=== PATIENT | male | born 1955 | race Caucasian/White ===

== ENCOUNTER → 2017-03-22 | Outpatient (CLI) | payer BC ==
--- NOTE | 2017-03-25 08:11 | XR ---
EXAMINATION TYPE: XR cervical spine comp DATE OF EXAM: 03/22/2017 4:55 PM TECHNIQUE: Frontal, lateral, oblique, and open mouth view of the cervical spine are obtained. HISTORY: M542 cervicalgia increased left-sided neck pain on background of chronic pain per patient COMPARISON: None FINDINGS: The cervical spine is visualized in its entirety from C1 thru the top of T1 level, it is s traightened in alignment without evidence of acute fracture or dislocation. There is grade 1 retroli sthesis of C5 on C6. The pre-vertebral soft tissue appears within normal limits. The C1-C2 articulat ion is within normal limits on the open mouth view. Vertebral body heights are maintained. There is m ild to moderate disc space narrowing with mild spurring at C5-C6 level. Oblique images are felt withi n normal limits. There is likely some right-sided neural foraminal narrowing due to marginal spurring and uncovertebral facet arthropathy. Vascular calcification bilateral carotid bulbs is present in th e overlying soft tissue. IMPRESSION: 1. Straightening of cervical spine with spondylolisthesis and most prominent degenerative change C5-C 6 level noted. 2. Vascular calcification carotid bulb level bilaterally at least moderate in appearance, recommend c arotid ultrasound correlation to assess for stenosis.
== END | disposition home or self-care (01) ==
LOC: RADXRYALE 16:42
PROVIDERS: ATTEND Family Medicine
DX: M43.12 Spondylolisthesis, cervical region (principal); M47.812 Spondylosis without myelopathy or radiculopathy, cervical region
CPT/HCPCS: 72050

== ENCOUNTER → 2019-04-10 | Outpatient (CLI) | payer BC ==
--- NOTE | 2019-04-13 11:52 | ECHOS ---
STRESS ECHOCARDIOGRAM DATE OF SERVICE: 04/10/2019 INDICATIONS: Chest pain. MEDICATIONS: Atorvastatin, Norvasc. BASELINE HEART RATE: 103 BASELINE BLOOD PRESSURE: 177/58 MAXIMUM HEART RATE: 143 MAXIMUM BLOOD PRESSURE: 207/67 85% MPHR: 134 100% MPHR: 158 METS: 7.1 MAXIMUM STAGE REACHED: II TOTAL EXERCISE TIME: 6 minutes CLINICAL INFORMATION: STRESS DATA: Pretesting physical examination showed a heart rate of 103, pressure is 177/58 mmHg. Baseline EKG showed sinus mechanism. The patient exercised on treadmill according to Ron protocol for a total of 6 minutes and achieved 7.1 METs. Max heart rate was 143 which is about 90% of maximum predicted heart rate. Maximum blood pressure was 207/67 mmHg. Clinically the patient did not have any symptoms of chest pain or discomfort. The EKG showed about [address]-segment depression. The changes resolved on recovery. ECHOCARDIOGRAM IMAGES: On echocardiogram images from parasternal long axis view, parasternal short axis view, apical 4 chamber and apical 2 chamber views were obtained at the baseline images, at the peak of the heart rate, as well as on recovery. The echocardiogram images showed good augmentation in the left ventricular systolic function without any evidence of wall motion abnormalities concerning for ischemia. CONCLUSION: 1. Good exercise tolerance. 2. ST changes in response to exercise. 3. Normal echocardiogram in response to exercise without any evidence of wall motion abnormalities concerning for ischemia. MMODL / IJN: [id number] /
== END | disposition home or self-care (01) ==
LOC: RADNMMAIN 09:46
PROVIDERS: ATTEND Family Medicine
DX: R00.0 Tachycardia, unspecified (principal); I10 Essential (primary) hypertension
CPT/HCPCS: 93351

== ENCOUNTER → 2025-03-16 | Outpatient (CLI) | payer MEDICARE ==
--- NOTE | 2025-03-16 13:16 | XR ---
EXAMINATION TYPE: XR chest 2V DATE OF EXAM: 03/16/2025 11:40 AM COMPARISON: 04/02/2022 CLINICAL INDICATION: Male, 69 years old with history of J180,R062 BRONCHOPNEUMONIA, WHEEZING, , TECHNIQUE: Frontal and lateral views FINDINGS: ACDF hardware. Heart normal size. Aorta and pulmonary vasculature within normal limits. There is some right paratracheal soft tissue prominence similar to slightly increased from 2021. New band of opaci ty at the left midlung. Otherwise, no consolidation or pleural effusion. Moderate degenerative change mid thoracic spine. IMPRESSION: Consider further CT evaluation to assess right paratracheal soft tissue density and a band of opacity at the left midlung to exclude any endobronchial lesion causing postobstructive atelectasis. [facility], , 03/16/2025 1:13 PM
== END | disposition home or self-care (01) ==
LOC: RADXRYALE 11:30
PROVIDERS: ATTEND Family Medicine
DX: J18.0 Bronchopneumonia, unspecified organism (principal); J98.4 Other disorders of lung
CPT/HCPCS: 71046

== ENCOUNTER → 2025-03-29 | Outpatient (CLI) | payer MEDICARE ==
[2025-03-29 13:26] LABS: African American GFR (CKD) >90 (>60 ml/min/1.73 sqM); Blood Urea Nitrogen 28 mg/dL (9-20); Non-African American GFR(CKD) 81 (>60 ml/min/1.73 sqM)
--- NOTE | 2025-03-29 14:42 | CT ---
EXAMINATION TYPE: CT chest wo/w con CT DLP: 849 mGycm, Automated exposure control for dose reduction was used. DATE OF EXAM: 03/29/2025 2:03 PM COMPARISON: Chest radiograph 03/16/2025 CLINICAL INDICATION:Male, 69 years old with history of R91.8 OTHER NONSPECIFIC ABNORMAL FINDING OF ARNOLD NG F; PHH, ABNORMAL FINDING-LUNG NODULE TECHNIQUE: Multiple axial images were obtained through the chest before and after the uneventful admi nistration of 100 cc of Isovue-300 intravenously . Coronal and sagittal reformats reviewed. FINDINGS: LUNGS/ PLEURA: No pleural effusion, pneumothorax, or focal consolidation. Mild linear scarring and/or atelectasis within the medial aspect of the bilateral upper lobes. No suspicious pulmonary nodule o r mass. Elevation of the right hemidiaphragm. AIRWAY: Patent and unremarkable.. HEART: Size within normal limits. . Trace anterior pericardial effusion. Mild coronary artery calcifi cations present. MEDIASTINUM: No evidence of adenopathy. No abnormality corresponding to right paratracheal soft tissu e density. VASCULATURE: No aortic aneurysm. Atherosclerotic calcification of the aorta and its branches. Bovine aortic arch. MUSCULOSKELETAL: No acute osseous abnormalities. Partial visualization anterior cervical fusion hardw are. Mild multilevel degenerative disc disease with anterior osteophytosis of the thoracolumbar spine . SOFT TISSUES/LYMPH NODES: Unremarkable. LOWER NECK: Heterogenous hypodense 2.3 cm isthmus thyroid nodule. UPPER ABDOMEN: Diffuse low-attenuation to the liver parenchyma. Several hypodense lesions demonstrate d throughout the liver with largest in the left hepatic lobe measuring up to 2.1 cm. Multiple bilater al renal simple-appearing cysts with largest in the left upper pole measurement of 4.8 cm. IMPRESSION: 1. No CT evidence for acute thoracic process. 2. Mild linear scarring or atelectasis within the lungs correlating with prior chest radiograph. 3. No CT evidence of abnormality corresponding to right paratracheal soft tissue density on prior jignesh st radiograph. 4. Hepatic steatosis with hepatic cysts and bilateral renal cysts. No follow-up recommended. 5. 2.3 cm Isthmus thyroid nodule. Recommend further evaluation with thyroid ultrasound. [facility], , 03/29/2025 2:40 PM
== END | disposition home or self-care (01) ==
LOC: RADCTMAIN 12:30
PROVIDERS: ATTEND Family Medicine
DX: R91.8 Other nonspecific abnormal finding of lung field (principal); J44.9 Chronic obstructive pulmonary disease, unspecified; K76.0 Fatty (change of) liver, not elsewhere classified; K76.89 Other specified diseases of liver; N28.1 Cyst of kidney, acquired; E04.1 Nontoxic single thyroid nodule
CPT/HCPCS: 82565; 84520; 71270; 36415; Q9967

== ENCOUNTER → 2025-04-23 | Outpatient (CLI) | payer MEDICARE ==
--- NOTE | 2025-04-23 14:21 | US ---
EXAMINATION TYPE: US thyroid st tissue head/neck DATE OF EXAM: 04/23/2025 COMPARISON: Chest CT 03/29/25 CLINICAL INDICATION: Male, 69 years old with history of E04.1 NONTOXIC SINGLE THYROID NODULE; Isthmus nodule seen on recent chest CT TECHNIQUE: Grayscale and color Doppler imaging of the thyroid gland. FINDINGS: GLAND SIZE: Right Lobe: 4.6 x 1.6 x 1.7 cm Overall Parenchyma: homogeneous Left Lobe: 5.2 x 1.8 x 2.3 cm Overall Parenchyma: homogeneous Isthmus Thickness: 1.0 cm NODULES RIGHT: # of nodules measured on right: 0 LEFT: # of nodules measured on left: 0 2016 ACR TI-RADS LEVEL: ISTHMUS: # of nodules measured in the isthmus: 1 1. 3.0 X 1.7 x 2.7 cm mixed cystic and solid, hypoechoic nodule, which is wider than tall, with smo oth margins, without echogenic foci. TR3 2017 ACR TI-RADS LEVEL: Bilateral neck scanned, no evidence of lymphadenopathy. IMPRESSION: 1. Mildly suspicious nodule within the isthmus. Fine-needle aspiration recommended Highest TI-RADS level nodule reported: 2017 ACR TI-RADS LEVEL: TI-RADS assessment score and recommendation for follow-up based on appropriate scoring and treatment protocols. TR1 Benign No FNA TR2 Not suspicious No FNA TR3: If nodule size is ? 2.5 cm, FNA is recommended. If nodule size is ? 1.5 cm, follow-up imaging at 1, 3, and 5 years is recommended. TR4: If nodule size is ? 1.5 cm, FNA is recommended. If nodule size is ? 1.0 cm, follow-up imaging at 1, 2, 3, and 5 years is recommended. TR5: If nodule size is ? 1.0 cm, FNA is recommended. If nodule size is ? 0.5 cm, annual follow-up for up to 5 years is recommended. TR 1 thyroid nodules have a 0.3 % risk of malignancy. TR 2 thyroid nodules have a 1.5 % risk of malignancy. TR 3 thyroid nodules have a 4.8 % risk of malignancy. TR 4 thyroid nodules have a 9.1 % risk of malignancy. TR 5 thyroid nodules have a 35 % risk of malignancy. [email or web address] [facility], , 04/23/2025 2:19 PM
== END | disposition home or self-care (01) ==
LOC: RADUSWWP 12:58
PROVIDERS: ATTEND Family Medicine
DX: E04.1 Nontoxic single thyroid nodule (principal)
CPT/HCPCS: 76536

== ENCOUNTER 2025-05-11 08:19 | Day surgery (SDC) | payer MEDICARE ==
[2025-05-11 09:34] VITALS: RESP 16; TEMP 98.1
--- NOTE | 2025-05-11 10:41 | US ---
EXAMINATION TYPE: US FNA thyroid first lesion DATE OF EXAM: 05/11/2025 10:12 AM COMPARISON: 04/23/2025 CLINICAL INDICATION: Male, 70 years old with history of R94.6 ABNORMAL RESULTS OF THYROID FUNCTION [facility] , RADIOLOGIST: Dr. Wynn PROCEDURE: An initial scanning shows the dominant 2.6 cm TR3 isthmic nodule which is targeted for FNA. The procedure, along with the risks and complications were discussed with the patient. Patient agreed to proceed with the procedure. A consent was signed and placed in patient's chart. Maximum sterile barrier technique was utilized. Timeout was performed by radiology nursing. The midli ne neck was sterilely prepped and draped in the usual fashion. 5 milliliters of 1% Lidocaine were uti lized to anesthetize the superficial and deep soft tissues at each nodule in turn. Following that, under ultrasound guidance, 5 passes were made into the nodule with 5 cc syringe sucti on. After each pass, the sample was placed on a slide and then sent for pathology. Upon conclusion, hemostasis was achieved, and patient was discharged home in satisfactory condition. IMPRESSION: Successful FNA of the dominant 2.6 cm TR3 isthmic nodule. Pathology pending. [facility], , 05/11/2025 10:39 AM
[2025-05-11 10:47] VITALS: BP 136/88; PULSE 86
== END 2025-05-11 10:20 | disposition home or self-care (01) ==
LOC: RADPROMAIN 08:19
PROVIDERS: ATTEND Family Medicine
DX: E04.1 Nontoxic single thyroid nodule (principal)
CPT/HCPCS: 10005; 88173; 88305